=== PATIENT | male | born 1960 | race Caucasian/White ===

== ENCOUNTER 2019-07-25 08:40 | Day surgery (SDC) | payer OTHER ==
[~2019-07-25] VITALS: Ht 165.1 cm; Wt 94.5 kg
[~2019-07-25 08:40] MED LIST: SODIUM CHLORIDE 0.9% 1,000 ML ONE
[2019-07-25] MEDS ORDERED: SODIUM CHLORIDE 0.9% 1,000 ML IV ONE (09:00)
[2019-07-25 09:24] LABS: GLUCOMETER DEV NAME(LOC) SDS.; GLUCOSE,POINT OF CARE 112 MG/DL (70-110)
[2019-07-25] MEDS ORDERED: TELM40 PO (09:34)
[2019-07-25] MEDS ORDERED: METF-960 PO (09:34)
[2019-07-25] MEDS ORDERED: PANT40TA25 PO (09:34)
[2019-07-25] MEDS ORDERED: ALFU10TA30 PO (09:34)
[2019-07-25] MEDS ORDERED: SIMV-260 PO (09:34)
[2019-07-25] MEDS ORDERED: ASPI81TA87 PO (09:34)
[2019-07-25] MEDS ORDERED: PROPOFOL 1% 20 ML VIAL IVP ONE (12:00)
[2019-07-25] MEDS ORDERED: LIDOCAINE/PF 2% 5 ML SYRINGE IVP ONE (12:00)
== END 2019-07-25 12:45 | disposition home or self-care (01) ==
LOC: SURGERY 08:40
PROVIDERS: ATTEND Student in an Organized Health Care Education/Training Program
DX: K25.9 Gastric ulcer, unspecified as acute or chronic, without hemorrhage or perforation (principal); K29.50 Unspecified chronic gastritis without bleeding; K31.7 Polyp of stomach and duodenum; K31.89 Other diseases of stomach and duodenum; K22.8 Other specified diseases of esophagus; K21.9 Gastro-esophageal reflux disease without esophagitis; E78.5 Hyperlipidemia, unspecified; E11.9 Type 2 diabetes mellitus without complications; E66.09 Other obesity due to excess calories; Z88.0 Allergy status to penicillin; Z88.8 Allergy status to other drugs, medicaments and biological substances; Z79.899 Other long term (current) drug therapy; Z79.82 Long term (current) use of aspirin; Z83.3 Family history of diabetes mellitus; Z98.890 Other specified postprocedural states; Z68.36 Body mass index [BMI] 36.0-36.9, adult
CPT/HCPCS: 43239; 82962; 88305; 88312; 88313; 93005; C1769; J2704; J3490; J7030